=== PATIENT | female | born 1990 ===

== ENCOUNTER 2018-08-14 15:14 | Emergency (ER) | payer SELFPAY ==
[2018-08-14 15:27] VITALS: RESP 20
[2018-08-14 15:46] LABS: BASOPHILS % (AUTO) 0 % (0-3); EOSINOPHILS % (AUTO) 1 % (0-9); HEMATOCRIT 41 % (35-47); HEMOGLOBIN 12.7 gm/dl (12.0-15.5); LYMPHOCYTES % (AUTO) 9.1 % (10-50); MEAN CORPUSCULAR HEMOGLOBIN 25.8 pg (27.0-32.0); MEAN CORPUSCULAR HGB CONC 31.2 gm/dl (32.0-36.0); MEAN CORPUSCULAR VOLUME 83 fL (81-99); MONOCYTES % (AUTO) 4.4 % (0-12); NEUTROPHILS % (AUTO) 85.5 % (37-80)
[2018-08-14 15:53] LABS: CARBON DIOXIDE 29.5 mEq/L (21-32); CREATININE 0.65 mg/dl (0.60-1.00); POTASSIUM 3.4 mMol/L (3.5-5.1)
[2018-08-14 15:55] LABS: APPEARANCE,URINE Clear; BILIRUBIN,URINE NEGATIVE (NEGATIVE); COLOR,URINE Yellow; GLUCOSE, URINE (UA) NEGATIVE (NEGATIVE); KETONES,URINE NEGATIVE (NEGATIVE); LEUKOCYTE ESTERASE ,URINE NEGATIVE (NEGATIVE); NITRATE,URINE NEGATIVE (NEGATIVE); OCCULT BLOOD,URINE TRACE INTACT (NEG-TRACE); PH,URINE 6.5; UROBILINOGEN,URINE 0.2 (0.2-1.0 EU)
[2018-08-14] MEDS ORDERED: ALUMINUM/MAGNESIUM 30 ML SUS PO ONE (15:56)
[2018-08-14] MEDS ORDERED: LIDOCAINE HCL 2% (VISCOUS) 20 ML SOL MT ONE (15:56)
[2018-08-14] MEDS ORDERED: ALUMINUM/MAGNESIUM 30 ML SUS ONE (15:57)
[2018-08-14] MEDS ORDERED: LIDOCAINE HCL 2% (VISCOUS) 20 ML SOL ONE (15:57)
[2018-08-14 15:58] LABS: RBC,URINE 0-2 (0-3AV/HPF); WBC,URINE 0-2 (0-5AV/HPF)
[2018-08-14 15:59] LABS: BACTERIA 1+ (< 1+); CRYSTALS NEGATIVE (0-3 AVE/HPF)
[2018-08-14] MEDS ORDERED: ONDANSETRON 4 MG ODT BU ONE (16:00)
[2018-08-14] MEDS ORDERED: ONDANSETRON 4 MG ODT ONE (16:22)
[2018-08-14] MEDS ORDERED: KETOROLAC TROMETHAMINE 30 MG/ML SOL IM ONE (16:34)
[2018-08-14] MEDS ORDERED: KETOROLAC TROMETHAMINE 30 MG/ML SOL IV ONE (16:41)
[2018-08-14] MEDS ORDERED: PANTOPRAZOLE SODIUM 40 MG VIAL 80 MG in SODIUM CHLORIDE 0.9% 100 ML 80 ML IV ONE (16:41)
[2018-08-14] MEDS ORDERED: PANTOPRAZOLE SODIUM 40 MG/10 ML PDS ONE (16:57)
[2018-08-14] MEDS ORDERED: KETOROLAC TROMETHAMINE 30 MG/ML SOL ONE (16:57)
[2018-08-14 17:16] VITALS: O2SAT 95
[2018-08-14] MEDS ORDERED: POTASSIUM CHLORIDE 10 MEQ TER PO ONE (17:22)
[2018-08-14] MEDS ORDERED: POTASSIUM CHLORIDE 10 MEQ TER ONE (17:42)
[2018-08-14 18:55] VITALS: PULSE 117; TEMP 98.2
[2018-08-14 18:56] VITALS: BP 112/78
== END 2018-08-14 18:50 | disposition home or self-care (01) | DRG 392 ==
LOC: ED 15:14
DX: R10.13 Epigastric pain (principal); R50.9 Fever, unspecified; E87.6 Hypokalemia; K52.9 Noninfective gastroenteritis and colitis, unspecified
CPT/HCPCS: 36415; 74019; 80048; 81001; 84703; 85025; 96374; 99284; J1885; A9270-GY